=== PATIENT | male | born 1985 | race Caucasian/White ===

== ENCOUNTER 2021-01-05 07:55 | Outpatient (REF) | payer OTHER, SELFPAY ==
[2021-01-05 08:27] LABS: MANUAL DIFF FLAG NO
[2021-01-05 08:36] LABS: Basophils Percent Auto 0.6 % (0-2); Eosinophils Absolute Auto 0.1 X10*3/uL (0.0-0.4); Eosinophils Percent Auto 2.3 % (0-4); Hematocrit 48.2 % (42-52); Hemoglobin 15.7 g/dl (14.0-18.0); Imm Gran Abs Auto 0.03 X10*3/uL (0.00-0.03); Imm Gran Pct Auto 0.6 % (0.0-0.4); Lymphocytes Percent Auto 37.8 % (20-40); Mean Corpuscular HGB Conc 32.6 g/dl (31.0-36.0); Mean Corpuscular Hemoglobin 25.2 pg (27.0-33.0); Mean Corpuscular Volume 77.4 fL (80-98); Mean Platelet Volume 10.2 fL (9.4-12.4); Monocytes Absolute Auto 0.5 X10*3/uL (0.1-1.2); Monocytes Percent Auto 10.1 % (2-11); Neutrophils Absolute Auto 2.6 X10*3/uL (2.0-8.3); Neutrophils Percent Auto 48.6 % (45-73); Platelet Count 190 X10*3/uL (160-400); Red Blood Count 6.23 X10*6/uL (4.60-5.80); Red Cell Distribution Width 13.9 % (11.0-16.0); White Blood Count 5.2 X10*3/uL (4.8-10.8)
[2021-01-05 08:57] LABS: Alanine Aminotransferase 28 U/L (0-40); Albumin Level 4.5 g/dL (3.5-5.0); Alkaline Phosphatase 66 U/L (39-117); Anion Gap 12 (12-20); Aspartate Amino Transferase 35 U/L (5-37); Bilirubin Total 0.6 mg/dL (0.0-1.0); Blood Urea Nitrogen 13 mg/dL (9-16); Calcium 9.5 mg/dL (8.4-10.2); Carbon Dioxide 28 mmol/L (22-29); Chloride 106 mmol/L (96-108); Cholesterol 192 mg/dL; Estimated Glomerular Filt Rate > 60; Glucose Fasting 103 mg/dL (60-99); HDL Cholesterol 36 mg/dL; LDL Cholesterol Calculated 124 mg/dl; Potassium 4.5 mmol/L (3.3-5.1); Sodium 141 mmol/L (135-145); Total Protein 7.1 g/dL (6.5-8.0); Triglycerides 164 mg/dL
[2021-01-05 09:18] LABS: Vitamin D 25-OH Total 20.7 ng/mL (>30)
[2021-01-05 09:20] LABS: Appearance Urine CLEAR; Color Urine YELLOW; Glucose Urine UA NEG (NEG); Leukocyte Esterase Urine NEG (NEG); Nitrite Urine NEG (NEG); Specific Gravity - Urine 1.015 (1.005-1.025); Urine Blood NEG (NEG); Urine Ketones NEG (NEG); Urine Protein NEG (NEG-TRACE)
== END 2021-01-05 07:56 | disposition home or self-care (01) ==
LOC: HO.LAB 07:55
PROVIDERS: PCP Internal Medicine; Visit Provider Internal Medicine
DX: Z00.00 Encounter for general adult medical examination without abnormal findings (principal); E55.9 Vitamin D deficiency, unspecified
CPT/HCPCS: 36415; 80053; 80061; 81003; 82306; 84443; 85025

== ENCOUNTER 2021-04-16 15:08 | Outpatient (REF) | payer OTHER, SELFPAY ==
--- NOTE | ~2021-04-16 | XR_ITS ---
EXAMINATION: XR CHEST CLINICAL INFORMATION: Chest pain COMPARISON: Previous chest x-ray September 2018 TECHNIQUE: 2 views of the chest were obtained. FINDINGS: No significant abnormality is noted involving the heart, lungs, mediastinum, bony thorax or soft tissues. XR/XR chest 2V IMPRESSION: Unremarkable examination.
[2021-04-16 15:30] LABS: MANUAL DIFF FLAG NO
[2021-04-16 15:54] LABS: Basophils Percent Auto 0.5 % (0-2); Eosinophils Absolute Auto 0.1 X10*3/uL (0.0-0.4); Eosinophils Percent Auto 1.4 % (0-4); Hemoglobin 15.5 g/dl (14.0-18.0); Imm Gran Abs Auto 0.02 X10*3/uL (0.00-0.03); Imm Gran Pct Auto 0.3 % (0.0-0.4); Lymphocytes Absolute Auto 2.3 X10*3/uL (1.2-4.9); Mean Corpuscular Hemoglobin 25.1 pg (27.0-33.0); Mean Corpuscular Volume 76.1 fL (80.0-98.0); Mean Platelet Volume 10.1 fL (9.4-12.4); Monocytes Absolute Auto 0.6 X10*3/uL (0.1-1.2); Monocytes Percent Auto 8.7 % (2-11); Neutrophils Absolute Auto 3.6 x10*3/uL (2.0-8.3); Neutrophils Percent Auto 54.1 % (45-73); Platelet Count 202 X10*3/uL (160-400); Red Blood Count 6.18 X10*6/uL (4.60-5.80); Red Cell Distribution Width 13.3 % (11.0-16.0); White Blood Count 6.6 X10*3/uL (4.8-10.8)
[2021-04-16 16:20] LABS: Troponin-I High Sensitivity < 3.5 ng/L (<3.5-35.0)
[2021-04-16 16:25] LABS: Anion Gap 9 (12-20); Blood Urea Nitrogen 14 mg/dL (9-16); C Reactive Protein 0.11 mg/dL (< or = 0.50); Calcium 9.4 mg/dL (8.4-10.2); Carbon Dioxide 29 mmol/L (22-29); Chloride 106 mmol/L (96-108); Estimated Glomerular Filt Rate > 60; Glucose Random 97 mg/dL (60-115); Potassium 4.3 mmol/L (3.3-5.1); Sodium 140 mmol/L (135-145)
[2021-04-16 16:31] LABS: Erythrocyte Sedimentation Rate 2 MM/HR (0-15)
== END 2021-04-16 15:09 | disposition home or self-care (01) ==
LOC: HO.XRAY 15:08
PROVIDERS: PCP Internal Medicine; Visit Provider Internal Medicine
DX: R07.9 Chest pain, unspecified (principal)
CPT/HCPCS: 36415; 71046; 80048; 82550; 84484; 85025; 85652; 86140

== ENCOUNTER 2021-04-28 12:54 | Emergency (ER) | payer OTHER, SELFPAY ==
--- NOTE | ~2021-04-28 | XR_ITS ---
EXAMINATION: XR CHEST CLINICAL INFORMATION: Pneumonia COMPARISON: April 16, 2021 TECHNIQUE: AP portable chest view of the chest was obtained. FINDINGS: No significant abnormality is noted involving the heart, lungs, mediastinum, bony thorax or soft tissues. XR/XR chest 1V IMPRESSION: No acute disease.
[2021-04-28 13:06] VITALS: BP 106/68; PULSE 80; RESP 16; TEMP 36.7; O2SAT 98; BMI 24.3
--- NOTE | 2021-04-28 13:09 | ECG_ITS ---
Test Reason : chest pain Blood Pressure : / mmHG Vent. Rate : 085 BPM Atrial Rate : 085 BPM P-R Int : 142 ms QRS Dur : 092 ms QT Int : 336 ms P-R-T Axes : 070 077 045 degrees QTc Int : 399 ms Normal sinus rhythm Normal ECG When compared to the previous EKG of No significant changes seen Referred By: Generic ED Physician Electronically Signed By:JASWANT DANIEL MD
[2021-04-28 14:05] VITALS: BP 127/71; PULSE 83; RESP 14; O2SAT 99
--- NOTE | 2021-04-28 14:06 | ED_ITS ---
HPI - Chest Pain General Chief Complaint: Chest Pain Stated Complaint: chest pain Time Seen by Provider: 04/28/21 14:51 Source: patient Mode of arrival: ambulatory Limitations: no limitations History of Present Illness HPI narrative: 36-year-old male presents to the ED for atypical chest pain presentation. Patient states 4 weeks mid sternal chest pain radiating to right side of chest. Patient denies any shortness of breath, lower extremity swelling, calf pain, coughing up blood, fever, or chills. Patient stating many of his family members in the house are positive for COVID but he has tested negative many times. Patient was seen by his primary care provider who informed him that he is not having cardiac issue and had normal basic labs and x-ray of the chest. Patient denies any drug use Related Data Home Medications Medication Instructions Recorded Confirmed No Known Home Meds 06/23/20 04/16/21 Allergies Allergy/AdvReac Type Severity Reaction Status Date / Time No Known Allergies Allergy Verified 04/16/21 14:40 Review of Systems Verdana 4l Review of Systems: Verdana 4d Atypical chest pain. mid Verdana 4d sternal chest pain radiating to right chest pain Verdana 4d Yes all other systems are reviewed and are negative PMFSH Past Medical History Medical History Cerebrovascular malformation, vein of Willi Elevated blood pressure reading Surgical History No pertinent past surgical history Family History Family History Father Diabetes Mother No problems noted. 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 Pulse 83 04/28/21 15:35 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 Resp 12 04/28/21 15:35 BP 129/73 04/28/21 15:35 Pulse Ox 97 04/28/21 15:35 BMI result Body Mass Index 24.3 Const: General: cooperative, healthy appearing, comfortable, no acute distress, well developed, alert, awake and Physically active Orientation/consciousness: patient oriented x3 HENMT: Head: Yes normal to inspection, Yes No palpable skull fracture present, Yes normocephalic and Yes atraumatic Eyes: General: appearance normal, both eyes and all related structures Neck: Neck: Yes normal visual inspection, Yes full ROM, Yes no lymphadenopathy, Yes no meningeal signs, Yes trachea midline, Yes supple, No anterior neck swelling and No tender Chest: Chest palpation & inspection: normal inspection of the chest Chest/axillae images: 1. Positive for tenderness on palpation. Negative for erythema, rash, ecchymosis, crepitus, or deformity Resp: Effort & Inspection: normal respiratory effort and able to speak in complete sentences Auscultation: clear to auscultation bilaterally Cardio: Jugular venous distension: no JVD Heart sounds: S1 normal heart sound present and S2 normal heart sound present GI: Inspection: Yes normal to inspection and No abdominal wall ecchymosis Palpation (GI): Soft to palpation, not firm, nontender, no guarding and not rigid : General: No CVA tenderness and Yes no CVA tenderness Back/Spine/Pelvis: Back: no CVA tenderness, No CVA tenderness and No back tenderness Skin: General skin exam: no rashes or lesions noted and elasticity normal Neuro: General: patient oriented x3, gait normal, no meningeal signs and CN's II-XI intact bilaterally Cranial nerves: Yes CN's II-XII intact bilaterally Extrem: Other: Lower extremities negative for swelling, pitting edema, or calf tenderness. General: Yes normal to inspection and Yes full ROM Psych: Appearance: grossly normal, well kempt and not disheveled Course Course Course Narrative: Patient's symptoms seem muscular in nature but will do EKG and cardiac evalu ation. Reevaluation(s) Reevaluation #1: Troponin and D-dimer negative. EKG negative STEMI. BNP negative. Chest x-ray normal. COVID swab negative. Rate score 0. Heart score is 0. Patient is safe for discharge Time: 16:46 MDM - Chest Pain MDM Narrative Medical decision making narrative: [facility] chest wall pain Lab Data Result diagrams: 04/28/21 14:47 04/28/21 14:47 Labs: Lab Results 04/28/21 04/28/21 04/28/21 Range/Units 14:13 14:47 14:47 WBC 6.8 (4.8-10.8) X10*3/uL RBC 6.49 H (4.60-5.80) X10*6/uL Hgb 16.5 (14.0-18.0) g/dl Hct 49.4 (42.0-52.0) % MCV 76.1 L (80.0-98.0) fL MCH 25.4 L (27.0-33.0) pg MCHC 33.4 (31.0-36.0) g/dl RDW 13.8 (11.0-16.0) % Plt Count 193 (160-400) X10*3/uL MPV 9.9 (9.4-12.4) fL Immature Gran % (Auto) 0.4 (0.0-0.4) % Neut % (Auto) 58.5 (45-73) % Lymph % (Auto) 30.7 (20-40) % [place] % (Auto) 9.0 (2-11) % Eos % (Auto) 1.0 (0-4) % Baso % (Auto) 0.4 (0-2) % Lymph # (Auto) 2.1 (1.2-4.9) X10*3/uL [place] # (Auto) 0.6 (0.1-1.2) X10*3/uL Eos # (Auto) 0.1 (0.0-0.4) X10*3/uL Baso # (Auto) 0.0 (0.0-0.2) X10*3/uL Abs Immat Gran (auto) 0.03 (0.00-0.03) X10*3/uL Absolute Neuts (auto) 4.0 (2.0-8.3) x10*3/uL Absolute Nucleated RBC 0.000 (0.0-0.012) X10*3/uL Nucleated RBC % (auto) 0.0 (0.0-0.2) /100WBC PT 12.3 (9.9-13.0) SEC INR 1.1 (0.9-1.1) APTT 36.7 (24.1-38.0) SEC D-Dimer High Sensitivty < 150 NG/ML Sodium (135-145) mmol/L Potassium (3.3-5.1) mmol/L Chloride (96-108) mmol/L Carbon Dioxide (22-29) mmol/L Anion Gap (12-20) BUN (9-16) mg/dL Creatinine (0.5-1.4) mg/dL Estim Creat Clear Calc Estimated GFR Random Glucose (60-115) mg/dL Calcium (8.4-10.2) mg/dL Total Bilirubin (0.0-1.0) mg/dL Direct Bilirubin (0.0-0.5) mg/dL AST (5-37) U/L ALT (0-40) U/L Alkaline Phosphatase (39-117) U/L Troponin I High Sens (<3.5-35.0) ng/L B-Natriuretic Peptide (<100) pg/mL Total Protein (6.5-8.0) g/dL Albumin (3.5-5.0) g/dL COVID-19 ([facility]) Cancelled COVID-19 Clin Com Cancelled 04/28/21 04/28/21 04/28/21 Range/Units 14:47 14:47 15:33 WBC (4.8-10.8) X10*3/uL RBC (4.60-5.80) X10*6/uL Hgb (14.0-18.0) g/dl Hct (42.0-52.0) % MCV (80.0-98.0) fL MCH (27.0-33.0) pg MCHC (31.0-36.0) g/dl RDW (11.0-16.0) % Plt Count (160-400) X10*3/uL MPV (9.4-12.4) fL Immature Gran % (Auto) (0.0-0.4) % Neut % (Auto) (45-73) % Lymph % (Auto) (20-40) % [place]ot % (Auto) (2-11) % Eos % (Auto) (0-4) % Baso % (Auto) (0-2) % Lymph # (Auto) (1.2-4.9) X10*3/uL [place] # (Auto) (0.1-1.2) X10*3/uL Eos # (Auto) (0.0-0.4) X10*3/uL Baso # (Auto) (0.0-0.2) X10*3/uL Abs Immat Gran (auto) (0.00-0.03) X10*3/uL Absolute Neuts (auto) (2.0-8.3) x10*3/uL Absolute Nucleated RBC (0.0-0.012) X10*3/uL Nucleated RBC % (auto) (0.0-0.2) /100WBC PT (9.9-13.0) SEC INR (0.9-1.1) APTT (24.1-38.0) SEC D-Dimer High Sensitivty NG/ML Sodium 139 (135-145) mmol/L Potassium 4.4 (3.3-5.1) mmol/L Chloride 105 (96-108) mmol/L Carbon Dioxide 25 (22-29) mmol/L Anion Gap 13 (12-20) BUN 15 (9-16) mg/dL Creatinine 0.98 (0.5-1.4) mg/dL Estim Creat Clear Calc 130.3 Estimated GFR > 60 Random Glucose 101 (60-115) mg/dL Calcium 10.0 D (8.4-10.2) mg/dL Total Bilirubin 0.4 (0.0-1.0) mg/dL Direct Bilirubin 0.2 (0.0-0.5) mg/dL AST 24 (5-37) U/L ALT 20 (0-40) U/L Alkaline Phosphatase 75 (39-117) U/L Troponin I High Sens < 3.5 (<3.5-35.0) ng/L B-Natriuretic Peptide < 10 (<100) pg/mL Total Protein 7.6 (6.5-8.0) g/dL Albumin 4.5 (3.5-5.0) g/dL COVID-19 ([facility]) Negative COVID-19 Clin Com See Note ECG Data ECG #1: Interpretation: Normal sinus rhythm. Ventricular rate 85. Pr interval 142. QRS 92. QTC 394. Negative Stemi Discharge Plan Discharge Clinical Impression: Chest wall pain Patient Disposition: Home, Self-Care Instructions: Chest Pain (ED), Chest Wall Pain (ED) Additional Instructions: Your blood work, EKG and chest x-ray came back negative for heart attack, heart failure, pneumonia, or COVID. You're D-dimer came back negative for risk of blood clot. Please follow-up with your primary care provider. Return to the ED for any chest pain, shortness of breath on exertion, coughing up blood, leg swelling, calf pain, intractable fever, weakness, chills, or any other concerning symptoms. Prescriptions: No Action No Known Home Meds 0RF Stand Alone Forms: Work/School Release Print Language: [place]
[2021-04-28 14:52] LABS: MANUAL DIFF FLAG NO
[2021-04-28 14:54] LABS: Basophils Percent Auto 0.4 % (0-2); Eosinophils Absolute Auto 0.1 X10*3/uL (0.0-0.4); Hematocrit 49.4 % (42.0-52.0); Hemoglobin 16.5 g/dl (14.0-18.0); Imm Gran Abs Auto 0.03 X10*3/uL (0.00-0.03); Imm Gran Pct Auto 0.4 % (0.0-0.4); Lymphocytes Absolute Auto 2.1 X10*3/uL (1.2-4.9); Lymphocytes Percent Auto 30.7 % (20-40); Mean Corpuscular HGB Conc 33.4 g/dl (31.0-36.0); Mean Corpuscular Hemoglobin 25.4 pg (27.0-33.0); Mean Corpuscular Volume 76.1 fL (80.0-98.0); Mean Platelet Volume 9.9 fL (9.4-12.4); Monocytes Absolute Auto 0.6 X10*3/uL (0.1-1.2); Neutrophils Percent Auto 58.5 % (45-73); Platelet Count 193 X10*3/uL (160-400); Red Blood Count 6.49 X10*6/uL (4.60-5.80); Red Cell Distribution Width 13.8 % (11.0-16.0); White Blood Count 6.8 X10*3/uL (4.8-10.8)
[2021-04-28 15:01] LABS: INTERNATIONAL NORM RATIO 1.1 (0.9-1.1); Prothrombin Time 12.3 SEC (9.9-13.0)
[2021-04-28 15:04] LABS: Partial Thromboplastin Time 36.7 SEC (24.1-38.0)
[2021-04-28 15:08] LABS: Alanine Aminotransferase 20 U/L (0-40); Albumin Level 4.5 g/dL (3.5-5.0); Alkaline Phosphatase 75 U/L (39-117); Anion Gap 13 (12-20); Aspartate Amino Transferase 24 U/L (5-37); Bilirubin Direct 0.2 mg/dL (0.0-0.5); Bilirubin Total 0.4 mg/dL (0.0-1.0); Blood Urea Nitrogen 15 mg/dL (9-16); Carbon Dioxide 25 mmol/L (22-29); Chloride 105 mmol/L (96-108); Creatinine Clr Calc Pharmacy 130.3; Estimated Glomerular Filt Rate > 60; Glucose Random 101 mg/dL (60-115); Potassium 4.4 mmol/L (3.3-5.1); Sodium 139 mmol/L (135-145); Total Protein 7.6 g/dL (6.5-8.0)
[2021-04-28 15:15] LABS: B Type Natriuretic Peptide < 10 pg/mL (<100); Troponin-I High Sensitivity < 3.5 ng/L (<3.5-35.0)
[2021-04-28 15:21] LABS: D Dimer High Sensitivity < 150 NG/ML
[2021-04-28 15:35] VITALS: BP 129/73; PULSE 83; RESP 12; TEMP 36.9; O2SAT 97
--- NOTE | 2021-04-28 15:40 | PC.NURSE ---
patient a&ox3, air sampling and monitoring nsr 70s, vss, labs drawn, covid swab obtained, pt awaiting results of testing, will continue to monitor
[2021-04-28 16:00] LABS: COVID-19 Test Negative (Negative)
== END 2021-04-28 17:00 | disposition home or self-care (01) ==
PROVIDERS: Physician Assistant; Emergency Provider Emergency Medicine; PCP Internal Medicine
DX: R07.89 Other chest pain (principal); Z20.822 Contact with and (suspected) exposure to COVID-19
CPT/HCPCS: 36415; 71045; 80053; 82248; 83880; 84484; 85025; 85379; 85610; 85730; 87635; 93005; 99283; 99284

== ENCOUNTER 2021-09-22 06:24 | Outpatient (REF) | payer BC, SELFPAY ==
[2021-09-22 11:47] LABS: Anion Gap 12 (12-20); Blood Urea Nitrogen 16 mg/dL (9-16); Calcium 9.5 mg/dL (8.4-10.2); Carbon Dioxide 26 mmol/L (22-29); Chloride 105 mmol/L (96-108); Estimated Glomerular Filt Rate > 60; Glucose Random 99 mg/dL (60-115); Magnesium 2.2 mg/dL (1.6-2.6); Potassium 4.4 mmol/L (3.3-5.1); Sodium 139 mmol/L (135-145)
[2021-09-22 11:51] LABS: Estimated Average Glucose 108 mg/dL; Hemoglobin A1c % 5.4 %
[2021-09-22 12:10] LABS: Vitamin D 25-OH Total 22.6 ng/mL (>30)
[2021-09-22 12:17] LABS: Folate 13.6 ng/mL (> or = 4.0); Vitamin B12 1651 pg/mL (200-900)
== END 2021-09-22 06:25 | disposition home or self-care (01) ==
LOC: HO.HMGCLDS 06:24
PROVIDERS: PCP Internal Medicine; Visit Provider Nurse Practitioner Family
DX: R20.0 Anesthesia of skin (principal); R73.01 Impaired fasting glucose
CPT/HCPCS: 36415; 80048; 82306; 82607; 82746; 83036; 83735

== ENCOUNTER 2021-10-21 09:21 | Outpatient (REF) | payer BC, SELFPAY ==
--- NOTE | 2021-10-21 09:26 | EMG_ITS ---
Left median and ulnar sensory and motor studies were performed. Left radial sensory study was performed and paraspinal muscles were tested with a needle. 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 MD VALERI Kiran/STANISLAW / [id number]
== END 2021-10-21 09:22 | disposition home or self-care (01) ==
LOC: HO.NEURO 09:21
PROVIDERS: PCP Internal Medicine; Visit Provider Nurse Practitioner Family
DX: R20.0 Anesthesia of skin (principal)
CPT/HCPCS: 95886; 95909

== ENCOUNTER 2022-10-13 09:54 | Outpatient (AMB) | payer BC, SELFPAY ==
--- NOTE | 2022-10-13 10:00 | A.OFFPC_ITS ---
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 Review of the notes patient has been seen by Neurology and has [id number] ulnar neuropathy recommended follow-up in [address] Barragan presents today for memory issues. Patient states having difficultly focusing on things and forgetting work related tasks or stuff he wanted to do at home. Denies hx ADD or ADHD as a child. Denies any slurred speech, upper/lower extremity weakness except for his ulnar neuropathy symptoms. Does report headaches at baseline do to AVM hx. Patient due for follow up with [facility] in june 2023. [facility] Medical History Cerebrovascular malformation, vein of Willi Elevated blood pressure reading Surgical History No pertinent past surgical history Family History Father Diabetes Mother No problems noted. Social History Housing: House Alcohol intake: current Alcohol intake frequency: holidays/special occasions only Patient Tobacco Use Status: Never used Tobacco e-Cigarette/Vaping Use: Never Used Second Hand Smoke Exposure: Yes service: No Current occupational status: employed Cognitive needs: No Hearing needs: No Vision needs: No Questionnaire Thrive Questionnaire Date Thrive assessed: 05/04/21 TC-7 AMB Questionnaire TC-7 Date TC - 7 assessed: 05/04/21 Source: Developed by Drs. Rajesh Portillo, Zulma Oconnor, Negro tobar nd colleagues, with an educational juan from [employer]. Review of Systems Const Denies chills, Denies fatigue, Denies fever(s), Reports headache(s), Denies poor appetite and Denies weakness Eyes Denies no additional complaints and Denies loss of vision ENT Reports Normal hearing present and Reports headache(s) Card Denies chest pain, Denies syncope, Denies rapid heart rate and Denies dyspnea Resp Denies cough and Denies dyspnea GI Denies change in stool character, Denies constipation, Denies diarrhea, Denies nausea and Denies vomiting Denies dysuria, Denies urinary frequency and Denies urinary urgency Neuro Reports Normal hearing present, Denies confusion, Denies syncope, Reports headache(s), Denies loss of vision, Denies weakness and Reports other (Difficulty concentrating and forgetting tasks. ) Psych Denies confusion Endo Denies fatigue Physical exam (Primary Care) Vital Signs: Last Vital Signs Pulse 77 10/13/22 10:04 BP 120/72 10/13/22 10:04 Pulse Ox 97 10/13/22 10:04 Oxygen Delivery Method Room Air 10/13/22 10:04 BMI result Body Mass Index 27.0 Tobacco/Smoking Status: Tobacco use Status Tobacco use date assessed 10/13/22 10/13/22 10:08 Patient Tobacco Use Status Never used Tobacco 10/13/22 10:00 e-Cigarette/Vaping Use Never Used 10/13/22 10:00 Thrive Assessment: Date of Thrive Assessment Date Thrive assessed 05/04/21 10/13/22 10:00 Const General: No confusion Orientation/consciousness: No confusion HENMT Head: Yes normocephalic and Yes atraumatic Eyes Conjunctivae: conjunctivae normal Sclerae: sclerae normal Pupils: Equal, round and reactive pupils present and Pupils normal by confrontation EOM: EOMs intact bilaterally Direct Ophthalmoscopy: normal light reflex Chest Chest palpation & inspection: normal inspection of the chest Resp Effort & Inspection: normal respiratory effort Auscultation: clear to auscultation bilaterally, no crackles, no rhonchi and no wheezes Cardio Rate: regular rate Rhythm: regular rhythm Heart sounds: S1 normal heart sound present and S2 normal heart sound present GI Inspection: Yes normal to inspection General: Yes no CVA tenderness Back/Spine/Pelvis Back: no CVA tenderness Neuro General: No confusion Cranial nerves: Yes Equal, round and reactive pupils present and Yes Normal hearing present Cognition (Neuro): normal cognition Gait exam (Neuro): Normal gait present Motor exam (neuro): 5/5 motor strength present throughout Extrem General: No edema Assessment and Plan Assessment & Plan (1) Cerebrovascular malformation, vein of Willi: Comment: 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 Aleks Crum Patient has sought a second opinion regarding management at [facility] a few years ago and was advised the same (conservative management) as he has been mostly asymptomatic and that endovascular embolization, microvascular resection or radiosurgery may be associated with significant risks Follows up with neurosurgery (Dr. Aleks Crum) at the [facility] in [place], [place] regularly for his AVM Code(s): Q28.3 - Other malformations of cerebral vessels Plan: Patient due for follow-up likely clinic in June 2023. 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 Patient denies any stroke-like symptoms, patient made aware could send for CT scan just to rule out any acute concerns such as bleed/mass. Patient declined at this time, would like to be sent for ADD/ADHD evaluation. (3) Finger numbness: Comment: L hand 4th and 5th fingers Code(s): R20.0 - Anesthesia of skin Plan: Continue to follow-up with Neurology. Coding Level of Care Code Est Pt Level 3 (03043) Diagnoses Cerebrovascular malformation, vein of Willi Q28.3 Difficulty concentrating R41.840 Finger numbness R20.0
[2022-10-13 10:04] VITALS: BP 120/72; PULSE 77; O2SAT 97; BMI 27.0
== END 2022-10-13 10:23 | disposition home or self-care (01) ==
PROVIDERS: PCP Internal Medicine; Visit Provider Nurse Practitioner Family
DX: Q28.3 Other malformations of cerebral vessels (principal); R41.840 Attention and concentration deficit; R20.0 Anesthesia of skin
CPT/HCPCS: 99213

== ENCOUNTER 2023-04-17 10:03 | Outpatient (AMB) | payer BC, SELFPAY ==
[2023-04-17 10:05] VITALS: BP 120/80; PULSE 94; O2SAT 97; BMI 27.1
--- NOTE | 2023-04-17 10:05 | A.OFFPC_ITS ---
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 Accompanied by: Self / Same As Patient Allergies No Known Allergies Allergy (Verified 04/17/23 10:50) Medication List - Last Reconciled 04/17/23 by Ashwin Barragan MD multivitamin (Daily Multi-Vitamin tablet) 1 tab PO DAILY Tobacco use date assessed: 04/17/23 Dental Screening Dental Screen Date: 04/17/23 Did you have a dental visit in the last 12 months?: Yes Did you have a dental problem in the last 6 months where you did not have access to dental care?: No Was dental information given to patient?: Patient has dentist HPI Annual Exam HPI Details Patient comes in today for his annual physical examination States that he still has recurrent numbness and tingling sensation of his left 4th and 5th fingers but he feels okay otherwise He denies any headches or dizziness Denies any chest pains, no SOB No nausea/vomiting, no abdominal pain No change in bowel habits noted Denies any acute urinary symptoms [facility] Medical History (Updated 04/17/23 @ 12:06 by Ashwin Barragan MD) Overweight (BMI 25.0-29.9) Ulnar neuropathy of left upper extremity Impaired fasting glucose Vitamin D deficiency Elevated blood pressure reading Cerebrovascular malformation, vein of Willi Surgical History No pertinent past surgical history Family History Father Diabetes Mother No problems noted. Social History Housing: House Alcohol intake: current Alcohol intake frequency: holidays/special occasions only Patient Tobacco Use Status: Never used Tobacco e-Cigarette/Vaping Use: Never Used Second Hand Smoke Exposure: Yes service: No Current occupational status: employed Cognitive needs: No Hearing needs: No Vision needs: No Questionnaire PHQ-9 Over the last 2 weeks, how often have you been bothered by any of the following problems? 1. Little interest or pleasure in doing things: not at all 2. Feeling down, depressed, or hopeless: not at all 3. Trouble falling or staying asleep, or sleeping too much: not at all 4. Feeling tired or having little energy: not at all 5. Poor appetite or overeating: not at all 6. Feeling bad about yourself - or that you are a failure or have let yourself or your family down: not at all 7. Trouble concentrating on things, such as reading the newspaper or watching television: not at all 8. Moving or speaking so slowly that other people could have noticed. Or the opposite - being so fidgety or restless that you have been moving around a lot more than usual: not at all 9. Thoughts that you would be better off or of hurting yourself in some way: not at all Total score: 0 Depression Screening Interpretation: Negative Depression Screening Done: Yes 43293 - PHQ-9 Billing: Yes Source: Developed by Drs. Rajesh Portillo, Zulma Oconnor, Negro Smith and colleagues, with an educational juan from [employer] Thrive Questionnaire Date Thrive assessed: 04/17/23 I am a: Patient What is your living situation today?: I have a steady place to live Within the past 12 months, did the food you bought not last and you didn't have the money to get more?: Never true Within the past 12 months, did you worry whether your food would run out before you got money to buy more?: Never true Do you have trouble paying for medicines?: No Do you have trouble getting transportation to medical appointments?: No Do you have trouble paying your heating and electricity bill?: No Do you have trouble taking care of your child, family member or friend?: No Do you have trouble with day-to-day activities such as bathing, preparing meals, shopping, managing finances, etc.?: No Are you currently unemployed and looking for a job?: No Are you interested in more education?: No Please select the resources that you would like help with: None Currently or been in a relationship where the following occur: no concerns reported AUDIT C Alcohol Use Questionnaire (AUDIT-C) 1. How often do you have a drink containing alcohol?: Monthly or less 2. How many drinks containing alcohol do you have on a typical day when you are drinking?: 1 or 2 3. How often do you have six or more drinks on one occasion?: Never Total Score: 1 Score Reviewed/Action Taken: Yes TC-7 AMB Questionnaire TC-[address] - 7 assessed: 04/17/23 Feeling nervous, anxious, or on edge: 0 = Not at all Not being able to stop or control worryin = Not at all Worrying too much about different things: 0 = Not at all Trouble relaxin = Not at all Being so restless that it is hard to sit still: 0 = Not at all Becoming easily annoyed or irritable: 0 = Not at all Feeling afraid as if something awful might happen: 0 = Not at all Total TC-7 score (0-4 normal; 5-9 mild; 10-14 moderate; 15-21 severe): 0 Source: Developed by Drs. Rajesh Portillo, Zulma Oconnor, Negro Smith and colleagues, with an educational juan from [employer] Review of Systems Const Denies chills, Denies fatigue, Denies fever(s), Denies headache(s), Denies malaise and Denies weakness Eyes Denies blurry vision, Denies change in vision, Denies irritation and Denies itchy eyes ENT Denies dysphagia, Denies dizziness, Denies otalgia, Denies headache(s), Denies nasal congestion, Denies neck pain, Denies odynophagia and Denies sore throat Card Denies chest pain, Denies rapid heart rate, Denies irregular heart rhythm, Denies palpitations and Denies dyspnea Resp Denies chest congestion, Denies cough, Denies dyspnea and Denies wheezing GI Denies abdominal pain, Denies bloating, Denies constipation, Denies dysphagia, Denies heartburn, Denies diarrhea, Denies nausea, Denies odynophagia and Denies vomiting Denies hematuria, Denies difficulty urinating, Denies dysuria, Denies urinary frequency and Denies urinary urgency Musc Denies back pain, Denies arthralgias, Denies joint swelling, Denies muscle weakness, Denies neck pain, Reports numbness (on and off over the left 4th and 5th fingers) and Reports tingling (on and off over the left 4th and 5th fingers) Skin/Breast Denies change in pigmentation, Denies lesions, Denies rash and Denies unusual bruising Neuro Denies dizziness, Denies headache(s), Reports numbness (on and off over the left 4th and 5th fingers), Reports tingling (on and off over the left 4th and 5th fingers), Denies paresthesias and Denies weakness Endo Denies fatigue and Denies palpitations Aller/Immun Denies itchy eyes and Denies wheezing Physical exam (Primary Care) Vital Signs: Last Vital Signs Pulse 94 04/17/23 10:05 BP 120/80 04/17/23 10:05 Pulse Ox 97 04/17/23 10:05 Oxygen Delivery Method Room Air 04/17/23 10:05 BMI result Body Mass Index 27.1 Tobacco/Smoking Status: Tobacco use Status Tobacco use date assessed 04/17/23 04/17/23 10:09 Patient Tobacco Use Status Never used Tobacco 04/17/23 10:09 e-Cigarette/Vaping Use Never Used 04/17/23 10:09 PHQ-9: PHQ-9 Score PHQ-9: Total score 0 04/17/23 10:09 Depression Screening Interpretation: Negative Thrive Assessment: Date of Thrive Assessment Date Thrive assessed 04/17/23 04/17/23 10:09 Currently or been in a relationship where the following occur: no concerns reported Const General: no acute distress, alert and awake Orientation/consciousness: patient oriented x3 HENMT Head: Yes normocephalic and Yes atraumatic Ears: external ears normal, TM's normal bilaterally and EAC's normal General nose exam: No nasal discharge present Face and sinus: Yes normal facial exam and Yes sinuses nontender Teeth and gingiva: dentition normal Throat: Yes posterior oropharynx normal and Yes tonsils normal (no TP congestion) Eyes Eyelids: Yes eyelids normal Conjunctivae: conjunctivae normal Pupils: Equal, round and reactive pupils present EOM: EOMs intact bilaterally Neck Neck: Yes no lymphadenopathy and Yes supple Thyroid: Thyroid normal Resp Auscultation: clear to auscultation bilaterally, no rales and no wheezes Cardio Rate: regular rate Rhythm: regular rhythm Heart sounds: no murmurs GI Palpation (GI): Soft to palpation, nontender and No hepatosplenomegaly present Auscultation: normal bowel sounds General: Yes no CVA tenderness Back/Spine/Pelvis Back: no CVA tenderness Thoracic/Lumbar Spine: thoracic and lumbar spine normal to inspection Skin Lesions: no lesions Rashes: no rashes Neuro General: patient oriented x3, moves all extremities, no focal motor deficits and CN's II-XI intact bilaterally Cranial nerves: Yes Equal, round and reactive pupils present Cognition (Neuro): normal cognition Gait exam (Neuro): Normal gait present Extrem General: Yes no clubbing, cyanosis or edema Assessment and Plan Assessment & Plan (1) Annual physical exam: Code(s): Z00.00 - Encounter for general adult medical examination without abnormal findings Plan: Check labs (2) Elevated blood pressure reading: Code(s): R03.0 - Elevated blood-pressure reading, without diagnosis of hypertension Plan: Reinforced low sodium diet His blood pressure has been much better controlled over the past year Patient is reminded to continue monitoring his BP regularly - goal is systolic BP of 120 mm or less (3) Cerebrovascular malformation, vein of Willi: Comment: 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 Aleks Crum Patient has sought a second opinion regarding management at [facility] a few years ago and was advised the same (conservative management) as he has been mostly asymptomatic and that endovascular embolization, microvascular resection or radiosurgery may be associated with significant risks Follows up with neurosurgery (Dr. Aleks Crum) at the [facility] in [place], [place] regularly for his AVM Code(s): Q28.3 - Other malformations of cerebral vessels Plan: Follow up with neurosurgery (Dr. Crum) at the [facility] in [place], [place] as scheduled for continuing surveillance - was last seen in June 2020 and was r ecommended at the time that he can follow up every 3 years now instead of yearly Was recommended to continue conservative management unless patient becomes symptomatic (4) Vitamin D deficiency: Code(s): E55.9 - Vitamin D deficiency, unspecified Plan: Continue OTC Multivitamins daily Will recheck his Vitamin D level for follow up - advised that he may need to start back on Vitamin D supplements if his level remains low when rechecked (5) Impaired fasting glucose: Code(s): R73.01 - Impaired fasting glucose Plan: Reinforced low calorie diet HgbA1c was normal at 5.4% when checked a year and a half ago (6) Ulnar neuropathy of left upper extremity: Code(s): G56.22 - Lesion of ulnar nerve, left upper limb Plan: Was seen by neurology back in November 2021 and diagnosed with left ulnar neuropathy Advised that other than occupational therapy, there is not much available in terms of cure for ulnar neuropathy Patient states that his symptoms are mostly minimal and manageable and he does not need anything else done at this time (7) Overweight (BMI 25.0-29.9): Code(s): E66.3 - Overweight Plan: Reinforced diet/exercise as tolerated/lose weight Plan To return in 1 year for his next annual physical examination Orders: Orders Lipid Panel Today E78.00 - Pure hypercholesterolemia, unspecified, Q28.3 - Other malformations of cerebral vessels, Z00.00 - Encounter for general adult medical examination without abnormal findings TSH reflex Free T4 Today Q28.3 - Other malformations of cerebral vessels, Z00.00 - Encounter for general adult medical examination without abnormal findings Complete Blood Count Auto Diff Today Q28.3 - Other malformations of cerebral vessels, Z00.00 - Encounter for general adult medical examination without abnormal findings Comprehensive Crump. Panel Fast Today E78.00 - Pure hypercholesterolemia, unspecified, Q28.3 - Other malformations of cerebral vessels, Z00.00 - Encounter for general adult medical examination without abnormal findings UA CC w/rflx Micro + Cult Today Q28.3 - Other malformations of cerebral vessels, R30.0 - Dysuria, Z00.00 - Encounter for general adult medical examination without abnormal findings Vitamin D 25-OH Total Today E55.9 - Vitamin D deficiency, unspecified, Q28.3 - Other malformations of cerebral vessels, Z00.00 - Encounter for general adult medical examination without abnormal findings Vitamin B12 and Folate Today E53.8 - Deficiency of other specified B group vitamins, Q28.3 - Other malformations of cerebral vessels, Z00.00 - Encounter for general adult medical examination without abnormal findings Hemoglobin A1c Today Q28.3 - Other malformations of cerebral vessels, R73.01 - Impaired fasting glucose, Z00.00 - Encounter for general adult medical examination without abnormal findings Coding Level of Care Code Est Pt Prev Care [id number]) Diagnoses Annual physical exam Z00.00 Elevated blood pressure reading R03.0 Cerebrovascular malformation, vein of Willi Q28.3 Vitamin D deficiency E55.9 Impaired fasting glucose R73.01 Ulnar neuropathy of left upper extremity G56.22 Overweight (BMI 25.0-29.9) E66.3
== END 2023-04-17 10:58 | disposition home or self-care (01) ==
PROVIDERS: PCP Internal Medicine; Visit Provider Internal Medicine
DX: Z00.00 Encounter for general adult medical examination without abnormal findings (principal); R03.0 Elevated blood-pressure reading, without diagnosis of hypertension; Q28.3 Other malformations of cerebral vessels; E55.9 Vitamin D deficiency, unspecified; R73.01 Impaired fasting glucose; G56.22 Lesion of ulnar nerve, left upper limb; E66.3 Overweight
CPT/HCPCS: 99395

== ENCOUNTER 2023-04-18 07:01 | Outpatient (REF) | payer BC, SELFPAY ==
[2023-04-18 07:14] LABS: MANUAL DIFF FLAG NO
[2023-04-18 07:31] LABS: Appearance Urine Clear; Color Urine Yellow; Glucose Urine UA Negative (Negative); Leukocyte Esterase Urine Negative (Negative); Nitrite Urine Negative (Negative); PH 5.5 (5.0-9.0); Specific Gravity - Urine 1.025 (1.005-1.025); Urine Blood Negative (Negative); Urine Ketones Negative (Negative); Urine Protein Negative (Neg-Trace)
[2023-04-18 07:35] LABS: Basophils Percent Auto 0.4 % (0-2); Eosinophils Absolute Auto 0.1 X10*3/uL (0.0-0.4); Eosinophils Percent Auto 1.8 % (0-4); Hematocrit 48.3 % (42.0-52.0); Hemoglobin 16.1 g/dl (14.0-18.0); Imm Gran Abs Auto 0.04 X10*3/uL (0.00-0.03); Imm Gran Pct Auto 0.7 % (0.0-0.4); Lymphocytes Absolute Auto 1.9 X10*3/uL (1.2-4.9); Lymphocytes Percent Auto 34.5 % (20-40); Mean Corpuscular HGB Conc 33.3 g/dl (31.0-36.0); Mean Corpuscular Hemoglobin 25.6 pg (27.0-33.0); Mean Corpuscular Volume 76.8 fL (80.0-98.0); Mean Platelet Volume 10.3 fL (9.4-12.4); Monocytes Absolute Auto 0.6 X10*3/uL (0.1-1.2); Monocytes Percent Auto 10.5 % (2-11); Neutrophils Absolute Auto 2.8 x10*3/uL (2.0-8.3); Neutrophils Percent Auto 52.1 % (45-73); Platelet Count 215 X10*3/uL (160-400); Red Blood Count 6.29 X10*6/uL (4.60-5.80); Red Cell Distribution Width 13.3 % (11.0-16.0); White Blood Count 5.4 X10*3/uL (4.8-10.8)
[2023-04-18 07:42] LABS: Estimated Average Glucose 103 mg/dL; Hemoglobin A1c % 5.2 % (<6.0)
[2023-04-18 08:11] LABS: Alanine Aminotransferase 21 U/L (0-40); Albumin Level 4.3 g/dL (3.5-5.0); Alkaline Phosphatase 57 U/L (39-117); Anion Gap 11 (12-20); Aspartate Amino Transferase 23 U/L (5-37); Bilirubin Total 0.7 mg/dL (0.0-1.0); Blood Urea Nitrogen 17 mg/dL (9-16); Calcium 9.3 mg/dL (8.4-10.2); Carbon Dioxide 25 mmol/L (22-29); Chloride 106 mmol/L (96-108); Cholesterol 200 mg/dL (<200); Estimated Glomerular Filt Rate > 60; Glucose Fasting 105 mg/dL (60-99); HDL Cholesterol 33 mg/dL (>40); LDL Cholesterol Calculated 140 mg/dL (<100); Potassium 3.8 mmol/L (3.3-5.1); Sodium 138 mmol/L (135-145); Total Protein 7.2 g/dL (6.5-8.0); Triglycerides 135 mg/dL (<150)
[2023-04-18 08:19] LABS: TSH reflex Free T4 2.49 uIU/mL (0.32-4.0); Vitamin D 25-OH Total 23.3 ng/mL (>30)
[2023-04-18 08:32] LABS: Folate 9.1 ng/mL (> or = 4.0); Vitamin B12 725 pg/mL (200-900)
== END 2023-04-18 07:02 | disposition home or self-care (01) ==
LOC: HO.LAB 07:01
PROVIDERS: PCP Internal Medicine; Visit Provider Internal Medicine
DX: Z00.00 Encounter for general adult medical examination without abnormal findings (principal); Q28.3 Other malformations of cerebral vessels; E78.00 Pure hypercholesterolemia, unspecified; R30.0 Dysuria; E55.9 Vitamin D deficiency, unspecified; E53.8 Deficiency of other specified B group vitamins; R73.01 Impaired fasting glucose
CPT/HCPCS: 36415; 80053; 80061; 81003; 82306; 82607; 82746; 83036; 84443; 85025

== ENCOUNTER 2024-04-22 09:23 | Outpatient (REF) | payer BC, SELFPAY ==
[2024-04-22 10:23] LABS: MANUAL DIFF FLAG NO
[2024-04-22 10:36] LABS: Basophils Percent Auto 0.6 % (0-2); Eosinophils Absolute Auto 0.1 X10*3/uL (0.0-0.4); Eosinophils Percent Auto 2.1 % (0-4); Hematocrit 47.2 % (42.0-52.0); Hemoglobin 15.7 g/dl (14.0-18.0); Imm Gran Abs Auto 0.02 X10*3/uL (0.00-0.03); Imm Gran Pct Auto 0.4 % (0.0-0.4); Lymphocytes Percent Auto 36.8 % (20-40); Mean Corpuscular HGB Conc 33.3 g/dl (31.0-36.0); Mean Corpuscular Hemoglobin 25.6 pg (27.0-33.0); Mean Corpuscular Volume 76.9 fL (80.0-98.0); Mean Platelet Volume 9.6 fL (9.4-12.4); Monocytes Absolute Auto 0.5 X10*3/uL (0.1-1.2); Monocytes Percent Auto 8.6 % (2-11); Neutrophils Absolute Auto 2.8 x10*3/uL (2.0-8.3); Neutrophils Percent Auto 51.5 % (45-73); Platelet Count 180 X10*3/uL (160-400); Red Blood Count 6.14 X10*6/uL (4.60-5.80); Red Cell Distribution Width 13.3 % (11.0-16.0); White Blood Count 5.3 X10*3/uL (4.8-10.8)
[2024-04-22 10:38] LABS: Appearance Urine Clear; Color Urine Yellow; Glucose Urine UA Negative (Negative); Leukocyte Esterase Urine Negative (Negative); Nitrite Urine Negative (Negative); Specific Gravity - Urine >= 1.030 (1.005-1.025); Urine Blood Negative (Negative); Urine Ketones Negative (Negative); Urine Protein Trace mg/dL (Neg-Trace)
[2024-04-22 11:15] LABS: Alanine Aminotransferase 42 U/L (0-40); Albumin Level 4.4 g/dL (3.5-5.0); Alkaline Phosphatase 63 U/L (39-117); Anion Gap 11 (12-20); Aspartate Amino Transferase 35 U/L (5-37); Bilirubin Total 0.5 mg/dL (0.0-1.0); Blood Urea Nitrogen 16 mg/dL (9-16); Calcium 8.9 mg/dL (8.4-10.2); Carbon Dioxide 28 mmol/L (22-29); Chloride 107 mmol/L (96-108); Cholesterol 216 mg/dL (<200); Estimated Glomerular Filt Rate > 60; Glucose Fasting 95 mg/dL (60-99); HDL Cholesterol 33 mg/dL (>40); LDL Cholesterol Calculated 161 mg/dL (<100); Potassium 4.2 mmol/L (3.3-5.1); Sodium 142 mmol/L (135-145); Total Protein 7.5 g/dL (6.5-8.0); Triglycerides 110 mg/dL (<150)
[2024-04-22 11:31] LABS: TSH reflex Free T4 1.43 uIU/mL (0.32-4.0); Vitamin D 25-OH Total 26.4 ng/mL (>30)
== END 2024-04-22 09:24 | disposition home or self-care (01) ==
LOC: HO.LAB 09:23
PROVIDERS: PCP Internal Medicine; Visit Provider Internal Medicine
DX: Z00.00 Encounter for general adult medical examination without abnormal findings (principal); E78.00 Pure hypercholesterolemia, unspecified; R03.0 Elevated blood-pressure reading, without diagnosis of hypertension; E55.9 Vitamin D deficiency, unspecified; R73.01 Impaired fasting glucose; G56.22 Lesion of ulnar nerve, left upper limb; R06.83 Snoring; F98.8 Other specified behavioral and emotional disorders with onset usually occurring in childhood and adolescence; R41.840 Attention and concentration deficit; F41.9 Anxiety disorder, unspecified; E66.3 Overweight; R40.0 Somnolence; R53.83 Other fatigue; D64.9 Anemia, unspecified; R30.0 Dysuria; Q28.3 Other malformations of cerebral vessels; Z79.899 Other long term (current) drug therapy
CPT/HCPCS: 36415; 80053; 80061; 81003; 82306; 84443; 85025; 96127

== ENCOUNTER 2024-04-22 09:23 | Outpatient (AMB) | payer BC, SELFPAY ==
[2024-04-22 09:30] VITALS: BP 110/80; PULSE 96; TEMP 36.4; O2SAT 97; BMI 28.4
--- NOTE | 2024-04-22 09:30 | A.OFFPC_ITS ---
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 Accompanied by: Self / Same As Patient Allergies No Known Allergies Allergy (Verified 04/22/24 09:49) Medication List - Last Reconciled 04/22/24 by Ashwin Barragan MD multivitamin (Daily Multi-Vitamin tablet) 1 tab PO DAILY Tobacco use date assessed: 04/22/24 Dental Screening Dental Screen Date: 04/22/24 Did you have a dental visit in the last 12 months?: Yes Did you have a dental problem in the last 6 months where you did not have access to dental care?: No Was dental information given to patient?: Patient has dentist HPI Annual Exam HPI Details Patient comes in today for his annual physical examination States that he feels okay He denies any headaches or dizziness Denies any chest pains, no SOB No nausea/vomiting, no abdominal pain No change in bowel habits noted He denies any acute urinary symptoms States that he is currently on Lexapro 10 mg QD and Propranolol 10 mg QD PRN - is currently under the care of psychiatry for anxiety issues although he does not feel that his Lexapro is helping enough States that he would also experience symptoms of some 'brain fog' at times - he was tried on Strattera 60 mg QD bu his psychiatrist for a while but it did not help and that his psychiatrist is now trying to decide whether to start him on Methylphenidate ER or not but wants to be sure that this is not going to increase his risk of seizures Lastly, he adds that his would like to have him evaluated for sleep apnea as she relates that patient's snoring when he sleeps at night has gotten more and more pronounced and loud over the years Patient has noticed increased fatigue throughout the day recently and also reports (+) daytime somnolence at times [facility] Medical History Anxiety Attention deficit disorder (ADD) Pure hypercholesterolemia Overweight (BMI 25.0-29.9) Ulnar neuropathy of left upper extremity Impaired fasting glucose Vitamin D deficiency Elevated blood pressure reading Cerebrovascular malformation, vein of Willi Surgical History No pertinent past surgical history Family History Father Diabetes Mother No problems noted. Social History Housing: House Alcohol intake: current Alcohol intake frequency: holidays/special occasions only Patient Tobacco Use Status: Never used Tobacco e-Cigarette/Vaping Use: Never Used Second Hand Smoke Exposure: Yes service: No Current occupational status: employed Cognitive needs: No Hearing needs: No Vision needs: No Questionnaire PHQ-9 Over the last 2 weeks, how often have you been bothered by any of the following problems? 1. Little interest or pleasure in doing things: not at all 2. Feeling down, depressed, or hopeless: not at all 3. Trouble falling or staying asleep, or sleeping too much: several days 4. Feeling tired or having little energy: more than half the days 5. Poor appetite or overeating: not at all 6. Feeling bad about yourself - or that you are a failure or have let yourself or your family down: not at all 7. Trouble concentrating on things, such as reading the newspaper or watching television: nearly every day 8. Moving or speaking so slowly that other people could have noticed. Or the opposite - being so fidgety or restless that you have been moving around a lot more than usual: not at all 9. Thoughts that you would be better off or of hurting yourself in some way: not at all Total score: 6 Depression Screening Interpretation: Positive Depression Screening Follow-up: Existing condition and Declines treatment Depression Screening Done: Yes 33397 - PHQ-9 Billing: Yes Source: Developed by Drs. Rajesh Portillo, Zulma Oconnor, Negro Smith and colleagues, with an educational juan from [employer]. Thrive Questionnaire Date Thrive assessed: 04/22/24 I am a: Patient What is your living situation today?: I have a steady place to live Within the past 12 months, did the food you bought not last and you didn't have the money to get more?: Never true Within the past 12 months, did you worry whether your food would run out before you got money to buy more?: Never true Do you have trouble paying for medicines?: No Do you have trouble getting transportation to medical appointments?: No Do you have trouble paying your heating and electricity bill?: No Do you have trouble taking care of your child, family member or friend?: No Do you have trouble with day-to-day activities such as bathing, preparing meals, shopping, managing finances, etc.?: No Are you currently unemployed and looking for a job?: No Are you interested in more education?: No Please select the resources that you would like help with: None Currently or been in a relationship where the following occur: No concerns reported THRIVE Score: 0 AUDIT C Alcohol Use Questionnaire (AUDIT-C) 1. How often do you have a drink containing alcohol?: Monthly or less 2. How many drinks containing alcohol do you have on a typical day when you are drinking?: 3 or 4 3. How often do you have six or more drinks on one occasion?: Never Total Score: 2 Score Reviewed/Action Taken: Yes TC-7 AMB Questionnaire TC-7 Date TC - 7 assessed: 04/22/24 Feeling nervous, anxious, or on edge: 0 = Not at all Not being able to stop or control worryin = Several days Worrying too much about different things: 1 = Several days Trouble relaxin = Not at all Being so restless that it is hard to sit still: 0 = Not at all Becoming easily annoyed or irritable: 0 = Not at all Feeling afraid as if something awful might happen: 0 = Not at all Total TC-7 score (0-4 normal; 5-9 mild; 10-14 moderate; 15-21 severe): 2 Source: Developed by Drs. Rajesh Portillo, Zulma Oconnor, Negro Smith and colleagues, with an educational juan from [employer]. Review of Systems Const Denies chills, Reports daytime sleepiness (at times), Reports fatigue (increased lately), Denies fever(s), Denies headache(s), Denies malaise, Reports snoring (per his , this has gotten worse over the years), Denies stops breathing during sleep and Denies weakness Eyes Denies blurry vision, Denies change in vision, Denies irritation and Denies itchy eyes ENT Denies dysphagia, Denies dizziness, Denies otalgia, Denies headache(s), Denies nasal congestion, Denies neck pain, Denies odynophagia and Denies sore throat Card Denies chest pain, Denies rapid heart rate, Denies irregular heart rhythm, Denies palpitations and Denies dyspnea Resp Denies chest congestion, Denies cough, Denies dyspnea, Reports snoring (per his , this has gotten worse over the years) and Denies wheezing GI Denies abdominal pain, Denies bloating, Denies constipation, Denies dysphagia, Denies heartburn, Denies diarrhea, Denies nausea, Denies odynophagia and Denies vomiting Denies hematuria, Denies difficulty urinating, Denies dysuria, Denies urinary frequency and Denies urinary urgency Musc Denies back pain, Denies arthralgias, Denies joint swelling, Denies muscle weakness and Denies neck pain Skin/Breast Denies change in pigmentation, Denies lesions, Denies rash and Denies unusual bruising Neuro Denies dizziness, Denies headache(s), Denies memory loss (but reports episodes of 'brain fog' at times), Denies paresthesias and Denies weakness Psych Reports anxiety, Reports difficulty concentrating (at times) and Denies memory loss (but reports episodes of 'brain fog' at times) Endo Reports fatigue (increased lately) and Denies palpitations Aller/Immun Denies itchy eyes and Denies wheezing Physical exam (Primary Care) Vital Signs: Last Vital Signs Temp 97.5 F 04/22/24 09:30 Pulse 96 04/22/24 09:30 BP 110/80 04/22/24 09:30 Pulse Ox 97 04/22/24 09:30 Oxygen Delivery Method Room Air 04/22/24 09:30 BMI result Body Mass Index 28.4 Tobacco/Smoking Status: Tobacco use Status Tobacco use date assessed 04/22/24 04/22/24 09:32 Patient Tobacco Use Status Never used Tobacco 04/22/24 09:32 e-Cigarette/Vaping Use Never Used 04/22/24 09:32 PHQ-9: PHQ-9 Score PHQ-9: Total score 6 04/22/24 09:32 Depression Screening Interpretation: Positive Depression Screening Follow-up: Existing condition and Declines treatment Thrive Assessment: Date of Thrive Assessment Date Thrive assessed 04/22/24 04/22/24 09:32 Currently or been in a relationship where the following occur: No concerns reported Const General: no acute distress, alert and awake Orientation/consciousness: patient oriented x3 HENMT Head: Yes normocephalic and Yes atraumatic Ears: external ears normal, TM's normal bilaterally and EAC's normal General nose exam: No nasal discharge present Face and sinus: Yes normal facial exam and Yes sinuses nontender Teeth and gingiva: dentition normal Throat: Yes posterior oropharynx normal and Yes tonsils normal (no TP congestion) Eyes Eyelids: Yes eyelids normal Conjunctivae: conjunctivae normal Pupils: Equal, round and reactive pupils present EOM: EOMs intact bilaterally Neck Neck: Yes supple and No lymphadenopathy Thyroid: Thyroid normal Resp Auscultation: clear to auscultation bilaterally, no rales and no wheezes Cardio Rate: regular rate Rhythm: regular rhythm Heart sounds: no murmurs GI Palpation (GI): Soft to palpation, nontender and No hepatosplenomegaly present Auscultation: normal bowel sounds General: Yes no CVA tenderness Back/Spine/Pelvis Back: no CVA tenderness Thoracic/Lumbar Spine: thoracic and lumbar spine normal to inspection Skin Lesions: no lesions Rashes: no rashes Neuro General: patient oriented x3, moves all extremities, no focal motor deficits and CN's II-XI intact bilaterally Cranial nerves: Yes Equal, round and reactive pupils present Cognition (Neuro): normal cognition Gait exam (Neuro): Normal gait present Extrem General: Yes no clubbing, cyanosis or edema Coding Level of Care Code Est Pt Prev Care 18-39y(05038) Diagnoses Annual physical exam Z00.00 Cerebrovascular malformation, vein of Willi Q28.3 Pure hypercholesterolemia E78.00 Elevated blood pressure reading R03.0 Vitamin D deficiency E55.9 Impaired fasting glucose R73.01 Ulnar neuropathy of left upper extremity G56.22 Loud snoring R06.83 Attention or concentration deficit R41.840 Attention deficit type: attention or concentration deficit Anxiety F41.9 Overweight (BMI 25.0-29.9) E66.3 Additional Codes PHQ-9 - 27560 - PHQ-9 Billing: Yes ([id number]) Assessment & Plan Assessment & Plan (1) Annual physical exam: Code(s): Z00.00 - Encounter for general adult medical examination without abnormal findings Category: Medical Plan: Check labs He currently has no recommended cancer screenings due at this time (2) Cerebrovascular malformation, vein of Willi: Comment: 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 Aleks Crum Patient has sought a second opinion regarding management at [facility] a few years ago and was advised the same (conservative management) as he has been mostly asymptomatic and that endovascular embolization, microvascular resection or radiosurgery may be associated with significant risks Follows up with neurosurgery (Dr. Aleks Crum) at the [facility] in [place], [place] regularly for his AVM Code(s): Q28.3 - Other malformations of cerebral vessels Category: Medical Plan: Follow up with neurosurgery (Dr. Crum) at the [facility] in [place], [place] as scheduled for continuing surveillance - he was last seen in June 2020 and was recommended at the time that he can follow up every 3 to 4 years now instead of yearly He was recommended to continue conservative management unless he becomes symptomatic (3) Pure hypercholesterolemia: Code(s): E78.00 - Pure hypercholesterolemia, unspecified Category: Medical Plan: Have advised patient that his cholesterol level was elevated on his labs done early last year, with his total cholesterol at 200 mg/dl and LDL cholesterol at 140 mg/dl Reinforced low cholesterol diet Will recheck his fasting lipids for follow up (4) Elevated blood pressure reading: Code(s): R03.0 - Elevated blood-pressure reading, without diagnosis of hypertension Category: Medical Plan: His blood pressure appears much better controlled today Reinforced low sodium diet He is reminded to monitor his blood pressure periodically, at least a couple of times a month (5) Vitamin D deficiency: Code(s): E55.9 - Vitamin D deficiency, unspecified Category: Medical Plan: Continue OTC Multivitamins daily Have advised patient that his Vitamin D level was also slightly low when checked last year and advised him to start back on OTC Vitamin D3 2000 units QD Will recheck his Vitamin D level for follow up (6) Impaired fasting glucose: Code(s): R73.01 - Impaired fasting glucose Category: Medical Plan: His FBS was slightly elevated at 105 mg/dl but his HgbA1c was normal at 5.2% Will recheck his FBS for follow up today Reinforced low calorie/low carb diet; exercise as tolerated (7) Ulnar neuropathy of left upper extremity: Code(s): G56.22 - Lesion of ulnar nerve, left upper limb Category: Medical Plan: He was seen by neurology back in November 2021 and diagnosed with left ulnar neuropathy He was advised that other than occupational therapy, there is not much available in terms of cure for ulnar neuropathy Patient states that his symptoms are mostly minimal and manageable and he does not need anything done at this time (8) Loud snoring: Code(s): R06.83 - Snoring Category: Medical Plan: Patient scored 4 on his STOP-Bang questionnaire today - form scanned into his chart Will refer him to sleep medicine for further evaluation and management and to r/o KARLI (9) Attention deficit disorder (ADD): Code(s): F98.8 - Other specified behavioral and emotional disorders with onset usually occurring in childhood and adolescence Category: Medical Qualifiers: Attention deficit type: attention or concentration deficit Qualified Code(s): R41.840 - Attention and concentration deficit Plan: He has been tried on Strattera 60 mg QD by psychiatry but states that the Rx did not help States that his psychiatrist is currently contemplating on starting him on Methlyphenidate ER but wants to be sure that this is not going to increase his risks of seizure Patient has been advised to speak to his neurologist about this further (10) Anxiety: Code(s): F41.9 - Anxiety disorder, unspecified Category: Medical Plan: Continue Escitalopram 10 mg QD and Propranolol ER 10 mg QD Follow up with psychiatry as scheduled (11) Overweight (BMI 25.0-29.9): Code(s): E66.3 - Overweight Category: Medical Plan: Reinforced diet/exercise as tolerated/lose weight - he has gained some weight since his last visit here last year Plan Follow up in 6 months Orders: Orders Comprehensive [facility]. Panel Fast Today E78.00 - Pure hypercholesterolemia, unspecified, Z00.00 - Encounter for general adult medical examination without abnormal findings UA CC w/rflx Micro + Cult Today R30.0 - Dysuria, Z00.00 - Encounter for general adult medical examination without abnormal findings Vitamin D 25-OH Total Today E55.9 - Vitamin D deficiency, unspecified, Z00.00 - Encounter for general adult medical examination without abnormal findings Complete Blood Count Auto Diff Today D64.9 - Anemia, unspecified, Z00.00 - Encounter for general adult medical examination without abnormal findings Lipid Panel Today E78.00 - Pure hypercholesterolemia, unspecified, Z00.00 - Encounter for general adult medical examination without abnormal findings TSH reflex Free T4 Today E78.00 - Pure hypercholesterolemia, unspecified, Z00.00 - Encounter for general adult medical examination without abnormal findings Referrals 2 Sleep Medicine Referral R06.83 - Snoring, R40.0 - Somnolence, R53.83 - Other fatigue Medications: New cholecalciferol (vitamin D3) 50 mcg PO DAILY 90 days 90 caps 3RF E55.9 - Vitamin D deficiency, unspecified escitalopram oxalate (Lexapro) 10 mg PO DAILY 30 tabs 0RF propranolol 10 mg PO .QD PRN 30 tabs 0RF anxiety symptoms
== END 2024-04-22 10:10 | disposition home or self-care (01) ==
PROVIDERS: PCP Internal Medicine; Visit Provider Internal Medicine
DX: Z00.00 Encounter for general adult medical examination without abnormal findings (principal); Q28.3 Other malformations of cerebral vessels; E78.00 Pure hypercholesterolemia, unspecified; R03.0 Elevated blood-pressure reading, without diagnosis of hypertension; E55.9 Vitamin D deficiency, unspecified; R73.01 Impaired fasting glucose; G56.22 Lesion of ulnar nerve, left upper limb; R06.83 Snoring; R41.840 Attention and concentration deficit; F41.9 Anxiety disorder, unspecified; E66.3 Overweight

== ENCOUNTER → 2024-04-26 09:37 | Outpatient (BNVA) | payer BC, SELFPAY | PROVIDERS: PCP Internal Medicine; Visit Provider Physician Assistant Medical ==

== ENCOUNTER → 2024-06-25 08:52 | Outpatient (REF) | payer BC, SELFPAY ==
[2024-06-25 10:48] LABS: Folate 14.5 ng/mL (> or = 4.0); Vitamin B12 832 pg/mL (200-900)
[2024-06-28 13:33] LABS: Methylmalonic Acid 97 nmol/L (55-335)
== END ==
LOC: HO.SL 08:52
PROVIDERS: PCP Internal Medicine; Visit Provider Physician Assistant Medical
DX: R06.83 Snoring (principal); R53.83 Other fatigue; G47.9 Sleep disorder, unspecified
CPT/HCPCS: 36415; 82607; 82746; 83090; 83921; 95806

== ENCOUNTER → 2024-06-25 09:13 | Outpatient (BNV) | payer BC, SELFPAY | PROVIDERS: PCP Internal Medicine; Visit Provider Psychiatry & Neurology Neurology | DX: G47.9 Sleep disorder, unspecified (principal); R06.83 Snoring | CPT/HCPCS: 95806 ==

== ENCOUNTER 2024-07-26 07:51 | Outpatient (AMB) | payer BC, SELFPAY ==
--- OUTSIDE RECORDS SUMMARY | 2024-07-26 07:54 | XMS_ITS | Data Portability ---
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 Plan of Treatment Reminders Order Date Submit Date Provider Last Modified By Organization Details Last Modified Time Details Appointments None recorded. Lab None recorded. Referral None recorded. Procedures None recorded. Surgeries None recorded. Imaging None recorded. Medication Orders cyclobenzap rine 10 mg tablet 2022 023 [facility] #[id number], [address] [place], [address], 3 18:41:09 prednisone 20 mg tablet 2022 023 [facility] #[id number], [address] [place], [address], 3 18:41:09 Patient TargetsNo targets recorded. Patient InstructionsNo instructions recorded. Reason for Referral None Reported. Problems Name Problem SNOMED Code Status Onset Date Resolution Date Notes Provider Name and Address Organization Details Recorded Time Cerebral arteriovenous malformation 583920688 Active 2022 JASON ambriz, [place] - [facility] 3 17:59:53 Problem Notes None recorded. Medical Equipment None Reported. Allergies Allergen ID Allergen Name Allergen Category Reaction Reaction Severity Criticality Documentation Date Start Date Code Code System Note Provider Name and Address Organization Details Recorded Time 734828 ibuprofen medicatio n other Not available Not available 06/11/2022 5640 RxNorm JASON JACOB null, [place] - [facility] 3 17:58:55 Medications Name Sig Start Date Stop Date Status Note LastModified by Organization Details LastModified Time cyclobenzapr ine 10 mg tablet TAKE 1 TABLET BY MOUTH THREE TIMES A DAY FOR 10 DAYS active Not Available Not Available No t Available prednisone 20 mg tablet TAKE 3 TABLETS BY MOUTH EVERY DAY FOR 7 DAYS active Not Available Not Available No t Available prednisone 5 mg tablet TAKE 1 TABLET BY MOUTH EVERY DAY 06/11 completed Not Available Not Available Not Available Vitals Date Recorded Body height Body mass index (BMI) Body weight Pain severity - 0-10 verbal numeric rating [Score] - Reported Oxygen saturation Oxygen saturation in Arterial blood by Pulse oximetry Heart rate Respiratory rate Body temperature Systolic blood pressure Diastolic blood pressure Provider Name and Address Organization Details Last Updated DateTime 193.04 cm 25.6 kg/m2 65358.4 g 8 98 % 98 % 87 /min 16 /min 97.9 [degF] 129 mm[Hg] 76 mm[Hg] JASON JAMES [facility] 18:00:44 Social History Question Answer Notes LastModified by Organizat ion Details LastModified Time Tobacco Smoking Status Never Smoker JASON ambriz [facility] 06/11/2022 17:57:01 Are You Currently Employed? Yes Information not available 06/11/2022 Do You Use Any Illicit Or Recreational Drugs? No Information not available 06/11/2022 Have You Recently Traveled Abroad? No Information not available 06/11/2022 Do You Or Have You Ever Used Any Other Forms Of Tobacco Or Nicotine? No Information not available 06/11/2022 Sex: Unknown Functional Status None recorded. Mental Status None recorded. Family History Relationship Description Onset Age of this Age Resolved Age Notes LastModified by Organization Details LastModified Time Father Heart disease Not available 2022 17:56:52 Medical History No medical history recorded. Immunizations Vaccine Type Date Status Note Provider Nam e and Address Organization Details Recorded Time COVID-19, mRNA, LNP-S, PF, 30 mcg/0.3 mL dose 06/11/2020 completed JASON ambriz [place] - [facility] 06/11/2022 17:56:17 COVID-19, mRNA, LNP-S, PF, 30 mcg/0.3 mL dose 07/02/2020 completed MARIELLA Garibay - [facility] 06/11/2022 17:56:17 Past Encounters Encounter ID Performer Location Encounter Start Date Encounter Closed Date Diagnosis/Indication Diagnosis SNOMED-CT Code Diagnosis ICD10 Code Diagnosis Note [id number] [address] [place] [phone] 0 09/11/2021 08:10:55 09/11/2021 09:23:23 [id number] [address] [place] [address] [id number] 0 04/20/2019 15:45:15 04/20/2019 16:33:04 [id number] [address] [place] [id number] 0 06/09/2021 13:34:09 06/09/2021 14:46:12 [id number] JOSSELIN HAYS MD [address] [place] [address] 06/11/2022 13:23:16 06/11/2022 18:42:49 Spasm of muscle of lower back [id number] M62.830 MUSCU LOSKELETAL PAIN can be managed quite effectivel y with over the counter medication s and home treatments . When suffering from sprains, strains, contusions and other types of very painful but non-danger ous musculoske letal pain try the following: ?1. ACETAMINOP HEN 1,000 mg or 6 hours is needed for pain in between doses ofDiclofen ac.?2 . Heat:Apply moist heatto affected area 3 times a day for 20 minutes at a time. Do not sleep with a heating pad as it may cause skin duncan.?3.Stop Pain Roll On- Apply to affected area 3-4 times a day as needed for pain relief.?4. Many musculoske letal injuries can benefit from gentle stretching or strengthen ing exercises. 5. Wear abaTiempo Listo supportbra ce while working to take the strain of of you back.?If pain does not improve please see your doctor or return to [facility] within one week. If your symptoms become severe or uncontroll ed or if you develop new concerning symptoms please go to the Emergency Department for evaluation and pain control. Health Concerns Section Related Observation LastModified by Organization Detai ls LastModified Time None Recorded Concern Status LastModified by Organization Details LastModified Time None Recorded Advance Directives Directive None Recorded Payers Encounter Date Sequence Insurance Name Policy Number Policy Sommers Covered Member ID Sommers Member ID Guarantor Name 09/11/2021 1 [facility]: [employer] 112 Jadon Ramirez [id number] Jadon Ramirez 06/11/2022 1 [facility]: [employer] [id number] Jadon Ramirez [id number] Jadon Ramirez Notes Date Note Type Note Provider Name and Address Organization Details Recorded Time 06/11/2022 text/html Loww back pain started 2 days ago unrelated to anything. 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 No trauma described. No weakness in his legs. He does intermittently notice a tingling & burning in Rt upper leg that last a few seconds. . JOSSELIN HAYS MD [address] [place], [address], [place] - [facility] 06/11/2022 18:45:09
[2024-07-26 07:59] VITALS: BP 106/78; PULSE 86; O2SAT 95; BMI 28.3
--- NOTE | 2024-07-26 07:59 | A.OFFVIS_ITS ---
Vital Signs 07/26/24 07:59 Height 6 ft 4 in Weight 232 lb 6 oz BMI 28.3 BP 106/78 Blood Pressure Location Rt brachial Position Sitting Pulse 86 Pulse Source Pulse Oximeter Pulse Oximetry (%) 95 Oxygen Delivery Method Room Air Intake Visit Reasons: Follow up sleep Intake Note: Patient presents follow up Sleep. Labs/HST in chart. Allergies No Known Allergies Allergy (Verified 07/26/24 08:02) HPI Comments Details: 39 year old male referred to us for sleep evaluation per PCP. 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 He continues to snore loudly, gasps for air, and chokes according to his . He wakes up fatigued daily, yawns a lot. He denies morning headaches, he is not certain if he grinds his teeth at night. RLS: He has a tingling feeling in his legs and needs to shake it off, with painful cramps and spasms. Denies pins, needles or shock like needles. STM is poor at baseline, he needs reminders, and forgets conversations and movies. Goes into a room but doesn't recall why. 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 He has anxiety takes Lexapro 10mg, Propanolol 10mg for public speaking PRN. His diet is good, works out 3x a week and drinks plenty of water. Denies smoking, edibles and MJ, has alcohol socially. [facility] Medical History Anxiety Attention deficit disorder (ADD) Pure hypercholesterolemia Overweight (BMI 25.0-29.9) Ulnar neuropathy of left upper extremity Impaired fasting glucose Vitamin D deficiency Elevated blood pressure reading Cerebrovascular malformation, vein of Willi Surgical History No pertinent past surgical history Family History Father Diabetes Mother No problems noted. Social History Housing: House Alcohol intake: current Alcohol intake frequency: holidays/special occasions only Patient Tobacco Use Status: Never used Tobacco e-Cigarette/Vaping Use: Never Used Second Hand Smoke Exposure: Yes service: No Current occupational status: employed Cognitive needs: No Hearing needs: No Vision needs: No Physical Exam Vital Signs: Last Vital Signs Pulse 86 07/26/24 07:59 BP 106/78 07/26/24 07:59 Pulse Ox 95 07/26/24 07:59 Oxygen Delivery Method Room Air 07/26/24 07:59 BMI result Body Mass Index 28.3 Const General: cooperative, comfortable and no acute distress Orientation/consciousness: patient oriented x3 HEENT Face and sinus: Yes normal facial exam and Yes face symmetric Teeth and gingiva: other ([place] score of 3) Eyes Pupils: Equal, round and reactive pupils present Neck Neck: Yes full ROM and Yes supple Resp Effort & Inspection: normal respiratory effort and able to speak in complete se ntences Neuro General: patient oriented x3 and moves all extremities Cranial nerves: Yes CN's II-XII intact bilaterally, Yes Facial sensation intact/muscles of mastication intact, Yes Equal, round and reactive pupils present, Yes Normal accommodation reflex present, Yes Bilaterally intact EOM present, Yes Nystagmus not present, Yes Normal facial strength present, Yes Midline tongue present, Yes Ability to bilaterally rotate head present and Yes Ability to bilaterally elevate shoulders present Cognition (Neuro): normal cognition Gait exam (Neuro): Normal gait present Motor exam (neuro): 5/5 motor strength present throughout and Normal motor muscle tone present throughout Deep tendon reflexes (DTR's): Right triceps reflex intensity grade: 2+, Left triceps reflex intensity grade: 2+, Rt Biceps (C5, C6): 2+, Left biceps reflex intensity grade: 2+, Right brachioradialis reflex intensity grade: 2+, Left brachioradialis reflex intensity grade: 2+, Right patellar reflex intensity grade: 2+ and Left patellar reflex intensity grade: 2+ Psych Appearance: grossly normal Speech and movement: Normal speech and movement present Affect: normal affect Thought process: Normal thought process present Thought content: Normal thought content present Insight: Good insight present (Psych) Judgement: Good judgement present (Psych) Results Reviewed Results Reviewed: HST AHI is <1 and Oxygen Nadirs to 91%, 25% time of total sleep is spent snoring. Assessment & Plan Assessment & Plan (1) Fatigue due to sleep pattern disturbance: Code(s): R53.83 - Other fatigue; G47.9 - Sleep disorder, unspecified Category: Medical (2) Loud snoring: Code(s): R06.83 - Snoring Category: Medical Plan Snoring Loudly will send him to sleep dentistry for evaluation of mouth gaurd, nose strips and taping mouth can be helpful to slowly transition from mouth breathing to nose breathing. HST did not rule in sleep apnea, AHI was <1 and oxygen Steve to 91%. Fatigue Labs reviewed, cholesterol high, HDL is low, testosterone is low, deferred to PCP, vitamin D is low, continue Vitamin D daily. Continue Magnesium 400mg PO daily at night for RLS as needed. Continue B6 200 mg PO daily at night for RLS as needed. Orders: Referrals Dentistry Referral R53.83 - Other fatigue, G47.9 - Sleep disorder, unspecified, R06.83 - Snoring, G47.63 - Sleep related bruxism Patient Instructions: Sleep Hygiene provided: set a scheduled bedtime and wake time to help regulate the circadian rhythm and balance the release of pituitary hormones. Sleep in a dark room, temperatures below 68 degrees, and no devices n bed. Limit caffeinated products 6 hours prior to bed, and limit fluids 2-4 hours prior to bed. Gentle night yoga, diffusing essential oils, and playing soft music can be relaxing. Snoring Will refer to sleep dentistry for evaluation of mouth gaurd. May use nose strips, and mouth taping to train yourself to become a nose breathe r. RLS continue taking Magnesium and B6 as needed for symptoms of RLS. HDL Testosterone and Cholesterol f/u with PCP. Coding Level of Care Code New Pt Level 4 (69561) Diagnoses Fatigue due to sleep pattern disturbance R53.83; G47.9 Loud snoring R06.83 Time Spent (min) 20 Comment baseline snoring
== END 2024-07-26 08:18 | disposition home or self-care (01) ==
LOC: HO.HSMS 07:52
PROVIDERS: PCP Internal Medicine; Visit Provider Physician Assistant Medical
DX: R53.83 Other fatigue (principal); G47.9 Sleep disorder, unspecified; R06.83 Snoring
CPT/HCPCS: 99214

== ENCOUNTER → 2024-07-26 07:51 | Outpatient (BNVA) | payer BC, SELFPAY | PROVIDERS: PCP Internal Medicine; Visit Provider Physician Assistant Medical ==

== ENCOUNTER 2024-10-21 08:52 | Outpatient (AMB) | payer BC, SELFPAY ==
[2024-10-21 08:53] VITALS: BP 116/78; PULSE 90; O2SAT 96; BMI 28.3
--- NOTE | 2024-10-21 08:53 | A.OFFPC_ITS ---
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: No Accompanied by: Self / Same As Patient Allergies No Known Allergies Allergy (Verified 10/21/24 09:19) Medication List - Last Reconciled 10/21/24 by Ashwin Barragan MD cholecalciferol (vitamin D3) 50 mcg PO DAILY 90 days escitalopram oxalate (Lexapro) 10 mg PO DAILY magnesium oxide 400 mg PO DAILY multivitamin (Daily Multi-Vitamin tablet) 1 tab PO DAILY propranolol 10 mg PO .QD PRN Tobacco use date assessed: 10/21/24 Dental Screening Dental Screen Date: 10/21/24 Did you have a dental visit in the last 12 months?: Yes Did you have a dental problem in the last 6 months where you did not have access to dental care?: No Was dental information given to patient?: Patient has dentist HPI 6mth f/u HPI Details Patient comes in today for his follow up visit States that he feels okay He denies any headaches or dizziness Denies any chest pains, no SOB No nausea/vomiting, no abdominal pain No change in bowel habits noted He had a home sleep study done back in July 2024 that came out normal States that he was also seen at the [facility] a few weeks ago for follow up of his CV malformation - was advised to continue with conservative management at this time He would also like to know how his labs done back in April 2024 came out [facility] Medical History Anxiety Attention deficit disorder (ADD) Pure hypercholesterolemia Overweight (BMI 25.0-29.9) Ulnar neuropathy of left upper extremity Impaired fasting glucose Vitamin D deficiency Elevated blood pressure reading Cerebrovascular malformation, vein of Willi Surgical History No pertinent past surgical history Family History Father Diabetes Mother No problems noted. Social History Housing: House Alcohol intake: current Alcohol intake frequency: holidays/special occasions only Patient Tobacco Use Status: Never used Tobacco e-Cigarette/Vaping Use: Never Used Second Hand Smoke Exposure: Yes service: No Current occupational status: employed Cognitive needs: No Hearing needs: No Vision needs: No Questionnaire PHQ-9 Over the last 2 weeks, how often have you been bothered by any of the following problems? 1. Little interest or pleasure in doing things: not at all 2. Feeling down, depressed, or hopeless: not at all 3. Trouble falling or staying asleep, or sleeping too much: several days 4. Feeling tired or having little energy: more than half the days 5. Poor appetite or overeating: not at all 6. Feeling bad about yourself - or that you are a failure or have let yourself or your family down: not at all 7. Trouble concentrating on things, such as reading the newspaper or watching television: nearly every day 8. Moving or speaking so slowly that other people could have noticed. Or the opposite - being so fidgety or restless that you have been moving around a lot more than usual: not at all 9. Thoughts that you would be better off or of hurting yourself in some way: not at all Total score: 6 Depression Screening Interpretation: Positive Depression Screening Follow-up: Existing condition and In treatment Depression Screening Done: Yes 72241 - PHQ-9 Billing: Yes Source: Developed by Drs. Rajesh Portillo, Zulma Oconnor, Negro Smith and colleagues, with an educational juan from [employer]. Thrive Questionnaire Date Thrive assessed: 10/21/24 I am a: Patient What is your living situation today?: I have a steady place to live Within the past 12 months, did the food you bought not last and you didn't have the money to get more?: Never true Within the past 12 months, did you worry whether your food would run out before you got money to buy more?: Never true Do you have trouble paying for medicines?: No Do you have trouble getting transportation to medical appointments?: No Do you have trouble paying your heating and electricity bill?: No Do you have trouble taking care of your child, family member or friend?: No Do you have trouble with day-to-day activities such as bathing, preparing meals, shopping, managing finances, etc.?: No Are you currently unemployed and looking for a job?: No Are you interested in more education?: No Please select the resources that you would like help with: None Currently or been in a relationship where the following occur: No concerns reported THRIVE Score: 0 AUDIT C Alcohol Use Questionnaire (AUDIT-C) 1. How often do you have a drink containing alcohol?: Monthly or less 2. How many drinks containing alcohol do you have on a typical day when you are drinking?: 3 or 4 3. How often do you have six or more drinks on one occasion?: Never Total Score: 2 Score Reviewed/Action Taken: Yes TC-7 AMB Questionnaire TC-7 Date TC - 7 assessed: 10/21/24 Feeling nervous, anxious, or on edge: 0 = Not at all Not being able to stop or control worryin = Several days Worrying too much about different things: 1 = Several days Trouble relaxin = Not at all Being so restless that it is hard to sit still: 0 = Not at all Becoming easily annoyed or irritable: 0 = Not at all Feeling afraid as if something awful might happen: 0 = Not at all Total TC-7 score (0-4 normal; 5-9 mild; 10-14 moderate; 15-21 severe): 2 Source: Developed by Drs. Rajesh Portillo, Zulma Oconnor, Negro Smith and colleagues, with an educational juan from [employer]. Review of Systems Const Denies chills, Denies fatigue, Denies fever(s), Denies headache(s) and Reports snoring ENT Denies dysphagia, Denies dizziness, Denies otalgia, Denies headache(s), Denies neck pain, Denies odynophagia and Denies sore throat Card Denies chest pain, Denies rapid heart rate, Denies irregular heart rhythm, Denies palpitations and Denies dyspnea Resp Denies chest congestion, Denies cough, Denies dyspnea and Reports snoring GI Denies abdominal pain, Denies constipation, Denies dysphagia, Denies heartburn, Denies diarrhea, Denies nausea, Denies odynophagia and Denies vomiting Denies difficulty urinating, Denies dysuria, Denies nocturia and Denies urinary frequency Musc Denies back pain, Denies arthralgias and Denies neck pain Skin/Breast Denies rash Neuro Denies dizziness, Denies headache(s) and Denies paresthesias Psych Reports anxiety Endo Denies fatigue and Denies palpitations Physical exam (Primary Care) Vital Signs: Last Vital Signs Pulse 90 10/21/24 08:53 BP 116/78 10/21/24 08:53 Pulse Ox 96 10/21/24 08:53 Oxygen Delivery Method Room Air 10/21/24 08:53 BMI result Body Mass Index 28.3 Tobacco/Smoking Status: Tobacco use Status Tobacco use date assessed 10/21/24 10/21/24 08:58 Patient Tobacco Use Status Never used Tobacco 10/21/24 08:58 e-Cigarette/Vaping Use Never Used 10/21/24 08:58 PHQ-9: PHQ-9 Score PHQ-9: Total score 6 10/21/24 08:58 Depression Screening Interpretation: Positive Depression Screening Follow-up: Existing condition and In treatment Thrive Assessment: Date of Thrive Assessment Date Thrive assessed 10/21/24 10/21/24 08:58 Currently or been in a relationship where the following occur: No concerns reported Const General: no acute distress and alert Orientation/consciousness: patient oriented x3 HENMT Throat: Yes posterior oropharynx normal and Yes tonsils normal (no TP congestion) Neck Neck: Yes supple and No lymphadenopathy Thyroid: Thyroid normal Resp Auscultation: clear to auscultation bilaterally, no rales and no wheezes Cardio Rate: regular rate Rhythm: regular rhythm Heart sounds: no murmurs GI Palpation (GI): Soft to palpation and nontender Auscultation: normal bowel sounds General: Yes no CVA tenderness Back/Spine/Pelvis Back: no CVA tenderness Skin Rashes: no rashes Neuro General: patient oriented x3 Extrem General: Yes no clubbing, cyanosis or edema Results Reviewed Results Reviewed: Laboratory Tests 04/22/24 04/22/24 06/25/24 10:20 10:21 09:16 WBC 5.3 Hgb 15.7 Hct 47.2 Plt Count 180 Sodium 142 Potassium 4.2 Creatinine 0.95 Estimated GFR > 60 Fasting Glucose 95 Calcium 8.9 AST 35 ALT 42 H Triglycerides 110 Cholesterol 216 H LDL Cholesterol, Calc 161 H HDL Cholesterol 33 L 25-OH Vitamin D Total 26.4 L Vitamin B12 832 Methylmalonic Acid 97 Homocysteine 7.0 TSH 1.43 Ur Specific [place] >= 1.030 H Urine Protein Trace Urine Glucose (UA) Negative Urine Blood Negative Urine Nitrite Negative Ur Leukocyte Esterase Negative Coding Level of Care Code Est Pt Level 4 (16004) Diagnoses Cerebrovascular malformation, vein of Willi Q28.3 Pure hypercholesterolemia E78.00 Elevated blood pressure reading R03.0 Vitamin D deficiency E55.9 Impaired fasting glucose R73.01 Microcytic red blood cells R71.8 Ulnar neuropathy of left upper extremity G56.22 Loud snoring R06.83 Attention or concentration deficit R41.840 Attention deficit type: attention or concentration deficit Anxiety F41.9 Overweight (BMI 25.0-29.9) E66.3 Additional Codes PHQ-9 - 14361 - PHQ-9 Billing: Yes ([id number]) Assessment & Plan Assessment & Plan (1) Cerebrovascular malformation, vein of Willi: Comment: 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 Aleks Crum Patient has sought a second opinion regarding management at [facility] a few years ago and was advised the same (conservative management) as he has been mostly asymptomatic and that endovascular embolization, microvascular resection or radiosurgery may be associated with significant risks Follows up with neurosurgery (Dr. Aleks Crum) at the [facility] in [place], [place] regularly for his AVM Code(s): Q28.3 - Other malformations of cerebral vessels Category: Medical Plan: Follow up with neurosurgery (Dr. Crum) at the [facility] in [place], [place] as scheduled for continuing surveillance - he was last seen in June 2020 and was recommended at the time that he can follow up every 3 to 4 years now instead of yearl He was recommended to continue conservative management unless he becomes symptomatic Patient states that he was seen by neurosurgery at the [facility] earlier this year and advised to continue with conservative management (2) Pure hypercholesterolemia: Code(s): E78.00 - Pure hypercholesterolemia, unspecified Category: Medical Plan: Results of his labs done back in April 2024 reviewed and discussed with patient Have advised patient that his cholesterol level have gone up further on his labs done earlier this year, with his total cholesterol level now at 216 mg/dl and LDL cholesterol at 161 mg/dl Reinforced low cholesterol diet Will recheck his labs and fasting lipids in 6 months for follow up - have advised patient that if his cholesterol levels continue to go up and/or do not improve significantly with diet modification, we may need to consider starting him on pharmacotherapy to help lower his cholesterol levels (3) Elevated blood pressure reading: Code(s): R03.0 - Elevated blood-pressure reading, without diagnosis of hypertension Category: Medical Plan: His blood pressure has remained well-controlled currently Reinforced low sodium diet He is reminded to continue monitoring his blood pressure periodically/regularly (4) Vitamin D deficiency: Code(s): E55.9 - Vitamin D deficiency, unspecified Category: Medical Plan: Have advised patient that his Vitamin D level was still slightly low on his labs done earlier this year Continue OTC Multivitamins daily and Vitamin D3 2000 units QD (5) Impaired fasting glucose: Code(s): R73.01 - Impaired fasting glucose Category: Medical Plan: His FBS was normal at 95 mg/dl on his labs done back in April 2024; HgbA1c was normal at 5.2% when previously checked Reinforced low calorie/low carb diet; exercise as tolerated (6) Microcytic red blood cells: Code(s): R71.8 - Other abnormality of red blood cells Category: Medical Plan: Patient has been noted to have microcytosis on his CBC consistently over the past several years but his H/H have remained normal Will include Hgb electrophoresis with his next scheduled labs in 6 months for further evaluation (7) Ulnar neuropathy of left upper extremity: Code(s): G56.22 - Lesion of ulnar nerve, left upper limb Category: Medical Plan: He was seen by neurology back in November 2021 and diagnosed with left ulnar neuropathy He was advised that other than occupational therapy, there is not much available in terms of cure for ulnar neuropathy Patient states that his symptoms are mostly minimal and manageable and he does not need anything done at this time (8) Loud snoring: Code(s): R06.83 - Snoring Category: Medical Plan: Patient scored 4 on his STOP-Bang questionnaire today He was referred to sleep medicine for further evaluation and he eventually had a home sleep study done a few months ago that came back NORMAL He is reminded to try to avoid sleeping in a supine and flat position and that elevating his head slightly can help He is also advised that losing some weight can also help remedy this issue (9) Attention deficit disorder (ADD): Code(s): F98.8 - Other specified behavioral and emotional disorders with onset usually occurring in childhood and adolescence Category: Medical Qualifiers: Attention deficit type: attention or concentration deficit Qualified Code(s): R41.840 - Attention and concentration deficit Plan: He has been tried on Strattera 60 mg QD by psychiatry but states that the Rx did not help States that his psychiatrist was contemplating starting him on Methlyphenidate ER but decided against this eventually as this can potentially increase his risks of seizure Patient states that he has been doing well so far and does not feel that he requires any Rx or Tx at this time (10) Anxiety: Code(s): F41.9 - Anxiety disorder, unspecified Category: Medical Plan: Continue Escitalopram 10 mg QD and Propranolol ER 10 mg QD PRN Follow up with psychiatry as scheduled (11) Overweight (BMI 25.0-29.9): Code(s): E66.3 - Overweight Category: Medical Plan: Reinforced diet/exercise as tolerated/lose weight Plan To return as scheduled in April 2025 for his next annual physical examination Orders: Orders Complete Blood Count Auto Diff 04/19/25 D64.9 - Anemia, unspecified, Z00.00 - Encounter for general adult medical examination without abnormal findings Lipid Panel 04/19/25 E78.00 - Pure hypercholesterolemia, unspecified, Z00.00 - Encounter for general adult medical examination without abnormal findings UA CC w/rflx Micro + Cult 04/19/25 R30.0 - Dysuria, Z00.00 - Encounter for general adult medical examination without abnormal findings Vitamin D 25-OH Total 04/19/25 E55.9 - Vitamin D deficiency, unspecified, Z00.00 - Encounter for general adult medical examination without abnormal findings Comprehensive [place]. Panel Fast 04/19/25 E78.00 - Pure hypercholesterolemia, unspecified, Z00.00 - Encounter for general adult medical examination without abnormal findings TSH reflex Free T4 04/19/25 E78.00 - Pure hypercholesterolemia, unspecified, Z00.00 - Encounter for general adult medical examination without abnormal findings Hemoglobin Electrophoresis 04/19/25 R71.8 - Other abnormality of red blood cells
--- OUTSIDE RECORDS SUMMARY | 2024-10-21 09:02 | XMS_ITS | Data Portability ---
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 Plan of Treatment Reminders Order Date Submit Date Provider Last Modified By Organization Details Last Modified Time Details Appointments None recorded. Lab None recorded. Referral None recorded. Procedures None recorded. Surgeries None recorded. Imaging None recorded. Medication Orders cyclobenzap rine 10 mg tablet 2022 023 [facility][id number], [address] [place], [id number], 3 18:41:09 prednisone 20 mg tablet 2022 023 [id number], [address] [place], [id number], 3 18:41:09 Patient TargetsNo targets recorded. Patient InstructionsNo instructions recorded. Reason for Referral None Reported. 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 Medical Equipment None Reported. Allergies Allergen ID Allergen Name Allergen Category Reaction Reaction Severity Criticality Documentation Date Start Date Code Code System Note Provider Name and Address Organization Details Recorded Time 051152 ibuprofen medicatio n other Not available Not [...] height Body mass index (BMI) Body weight Oxygen saturation Oxygen saturation in Arterial blood by Pulse oximetry Heart rate Respiratory rate Body temperature Systolic And Diastolic Provider Name and Address Organization Details Last Updated DateTime 3 193.04 cm 25.6 kg/m2 94861.4 g 98 % 98 % 87 /min 16 /min 97.9 [degF] 129/76 mm[Hg] JASON JAMES PA - [facility] 3 18:00:44 Social History Question Answer Notes LastModified by [employer] Details LastModified Time Tobacco Smoking Status Never Smoker JASON ambriz PA - [facility] 06/11/2022 17:57:01 Have You Recently Traveled Abroad? No Information not available 06/11/2022 Sex: Unknown Functional Status Question Answer Note LastModified by [employer] Details LastModified Time Do you use any illicit or recreational drugs? No Information not available 06/11/2022 Do you or have you ever used any other forms of tobacco or nicotine? No Information not available 06/11/2022 Are you currently employed? Yes Information not available 06/11/2022 Mental Status None recorded. Family History Relationship [...] SNOMED-CT Code Diagnosis ICD10 Code Diagnosis Note [id number] [address] [address] [place] [address] 09/11/2021 08:10:55 09/11/2021 09:23:23 [id number] [address] [facility] [address] [place] [address] 04/20/2019 15:45:15 04/20/2019 16:33:04 [id number] [address] [facility] [address] [place] [address] 06/09/2021 13:34:09 06/09/2021 14:46:12 [id number] JOSSELIN HAYS MD [address] [place] [address] 06/11/2022 13:23:16 06/11/2022 18:42:49 Spasm of muscle of lower back [id number] M62.830 MUSCU LOSKELETAL PAIN can be managed quite effectivel y with over the counter medication s and home treatments . When suffering from sprains, strains, contusions and other types of very painful but non-danger ous musculoske letal pain try the followin. ACETAMINOP HEN 1,000 mg or 6 hours is needed for pain in between doses ofDiclofen ac. 2. Heat:Apply moist heatto affected area 3 times a day for 20 minutes at a time. Do not sleep with a heating pad as it may cause skin duncan. 3.Stop Pain Roll On- Apply to affected area 3-4 times a day as needed for pain relief. 4. Many musculoske letal injuries can benefit from gentle stretching or strengthen ing exercises. 5. Wear aback supportbra ce while working to take the strain of of you back. If pain does not improve please see your [...] Recorded Advance Directives Directive None Recorded Payers Insurance Date Sequence Insurance Name Policy Number Policy Sommers Covered Member ID Sommers Member ID Guarantor Name 06/11/2022 1 [place] [employer] [id number] Jadon Ramirez [id number] Jadon Ramirez Notes Date Note Type Note [...] JOSSELIN HAYS MD [address] [place], [address], [place] - [facility] 06/11/2022 18:45:09
== END 2024-10-21 09:29 | disposition home or self-care (01) ==
LOC: HO.HMCH 08:53
PROVIDERS: PCP Internal Medicine; Visit Provider Internal Medicine
DX: Q28.3 Other malformations of cerebral vessels (principal); E78.00 Pure hypercholesterolemia, unspecified; R03.0 Elevated blood-pressure reading, without diagnosis of hypertension; E55.9 Vitamin D deficiency, unspecified; R73.01 Impaired fasting glucose; R71.8 Other abnormality of red blood cells; G56.22 Lesion of ulnar nerve, left upper limb; R06.83 Snoring; R41.840 Attention and concentration deficit; F41.9 Anxiety disorder, unspecified; E66.3 Overweight

== ENCOUNTER → 2024-10-21 08:52 | Outpatient (BNVA) | payer BC, SELFPAY | PROVIDERS: PCP Internal Medicine; Visit Provider Internal Medicine | DX: R03.0 Elevated blood-pressure reading, without diagnosis of hypertension (principal); Q28.3 Other malformations of cerebral vessels; E78.00 Pure hypercholesterolemia, unspecified; R59.9 Enlarged lymph nodes, unspecified; R73.01 Impaired fasting glucose; R71.8 Other abnormality of red blood cells; G56.22 Lesion of ulnar nerve, left upper limb; R06.83 Snoring; R41.840 Attention and concentration deficit; F41.9 Anxiety disorder, unspecified; E66.3 Overweight; Z68.28 Body mass index [BMI] 28.0-28.9, adult | CPT/HCPCS: 96127 ==